=== PATIENT | female | born 1960 | race Caucasian/White ===

== ENCOUNTER 2019-03-16 19:18 | Emergency (ER) | payer MEDICARE, SELFPAY ==
[2019-03-16 19:19] VITALS: BP 169/100; PULSE 72; RESP 16; TEMP 36.4; O2SAT 96; BMI 32.3
--- NOTE | 2019-03-16 19:41 | CT_ITS ---
STUDY: CT ABDOMEN AND PELVIS WITHOUT CONTRAST REASON FOR EXAM: Female, 58 years old. Pain RADIATION DOSAGE (If Supplied By Facility): DLP = ( 1021.24 ) mGycm TECHNIQUE: Transaxial images were obtained from the dome of the diaphragm to the symphysis pubis without oral contrast, and without intravenous contrast. Sagittal and coronal images were reconstructed. Individualized dose optimization techniques were used for this CT. COMPARISON: None. FINDINGS: Evaluation of the abdominal viscera is limited in the absence of intravenous contrast. The visualized lung bases are clear. The visualized portions of the heart and pericardium are within normal limits. There are no calcified gallstones present. There is decreased hepatic attenuation. The liver is enlarged. No hepatic lesions are present. There is a right hepatic 2.5 cm cyst. The spleen is normal in size. There is a 1.3 cm splenic artery aneurysm. The pancreas demonstrates an unremarkable unenhanced appearance. The adrenal glands are within normal limits. There are no obstructing renal stones. There is no hydronephrosis. There is a left renal midpole 1.8 cm cyst. Normal visualized stomach. There is no bowel obstruction or inflammation. The aorta is normal in caliber. There is no abdominal or pelvic free air, free fluid, or fluid collection. Several mildly prominent mesenteric lymph nodes are present in the right lower quadrant. No pathologically enlarged lymph nodes are present. There are no destructive osseous lesions. CT/Abdomen/Pelvis without Cont IMPRESSION: No acute abdominal or pelvic pathology demonstrated on this noncontrast CT. Fatty liver and hepatomegaly. 1.3 cm splenic artery aneurysm. Several mildly prominent mesenteric lymph nodes in the right lower quadrant, possibly reactive. Electronically Signed: Ashish Munoz, at 20:34 EDT Tel , Service support ,
[2019-03-16] MEDS: 0.9% Normal Saline 1,000 ML 250 ML IV (19:47)
[2019-03-16] MEDS: Ondansetron 4 MG/2 ML Vial IV (19:47)
[2019-03-16] MEDS: Ketorolac 30 MG/ML Syringe IV (19:47)
[2019-03-16 19:49] LABS: Bacteria 0 SEEN /hpf (None Seen); Mucous, Urine 0 SEEN /hpf (<or=2+)
--- NOTE | 2019-03-16 19:53 | ED.DCSUM_ITS ---
- ER Visit Summary Date of Service: 03/16/19 Chief Complaint: Right flank pain History of Present Illness: The patient is a 58 F who presents with right flank pain that began approxi-1 to 2 hours prior to arrival. Patient states the pain began suddenly. Patient states the pain is constant burning but sharp at times. Patient states nothing makes it better or worse. Patient denies any prior history of similar pain. Patient denies any dysuria or hematuria. Patient denies any nausea or vomiting. Physical Examination: Vital signs are stable except for mildly elevated blood pressure 169/100. Patient is afebrile. Patient is in no acute distress. Oromucosa is pink and moist. Neck is supple. Trachea is midline. There is no JVD noted. Heart was regular rate and rhythm. Lungs are clear and equal bilaterally. Abdomen is soft. Bowel sounds are normal. There is some right CVA tenderness. There is no rebound or guarding noted. Cranial nerves II through XII are intact. There are no focal motor or sensory deficits noted. Test Results: CBC is within normal limits. Basic metabolic profile showed a creatinine of 1.05 and a BUN of 22. Urinalysis shows leukocyte esterase of 500 with 5-[address] scan of the abdomen and pelvis does not show any acute abnormality but there is some prominent mesenteric lymph nodes in the right lower quadrant that may be reactive. Emergency Department Course and Treatment: Patient was given IV fluids and Toradol here. Patient was given a prescription for Macrobid. Patient was instructed to follow-up with her primary care physician in 5 to 7 days. Patient understood and was agreeable with the plan. All questions were answered. Disposition: Discharge home Impression: 1. Urinary tract infection 2. Mesenteric adenitis This note was generated with [employer] dictation software. It may contain incorrect words, spelling, and punctuation that were not noted in review of the chart prior to signing ED Disposition - Plan for ED Patient: Disposition: Home or Assisted Living Diagnosis: Urinary tract infection, Mesenteric adenitis Instructions: Bladder Infection, Female (Adult) Prescriptions: Nitrofurantoin Macrocrystals [Macrobid] 100 mg PO Q12 #10 cap Prescription Printed Referrals: Arlet Chavis MD [Primary Care Provider] - 5-7 Days
[2019-03-16 19:58] LABS: Absolute Neutrophil Count 4.3 X10^3/uL (2.0-7.7); Basophil# 0.04 X10^3/uL; Basophil% 0.5 % (0-1); Eosinophil# 0.41 X10^3/uL; Eosinophils% 4.9 % (0-5); Hematocrit 42.2 % (37-47); Lymphocyte % 34.9 % (19-41); Mean Corp Hgb Conc 33.2 g/gl (32-36); Mean Corpuscular Hgb 28.5 pg (27.0-32.0); Mean Corpuscular Volume 85.8 fL (81-99); Mean Platelet Vol. 9.1 fl (6.2-12.0); Monocyte# 0.62 X10^3/uL; Monocyte% 7.5 % (0-10); Neutrophil # 4.29 X10^3/uL (2.7-7.7); Neutrophil % 51.7 % (47-70); Platelet Count 250 K/mm3 (150-450); RBC Distribution Width CV 12.8 % (11.6-14.6); RBC Distribution Width SD 39.4 fl (35.1-43.9); Red Blood Count 4.92 M/mm3 (4.2-5.4); White Blood Count 8.3 K/mm3 (4.4-11.0)
[2019-03-16 19:59] LABS: POSITIVE COUNT NO; POSITIVE DIFFERENTIAL NO; POSITIVE MORPHOLOGY NO
[2019-03-16 20:06] LABS: Color, Urine Yellow (Yellow); Glucose, Dipstick Normal (Normal); Ketone-Dipstick Negative (Negative); Leukocyte Esterase-Dipstick 500 /ul (Negative); Nitrite-Dipstick Negative (Negative); Occult Blood-Urine Negative /ul (Negative); Protein-Dipstick Negative (Negative); Urine Bilirubin Dipstick Negative (Negative); Urine Clarity Clear (Clear); Urine Urobilinogen Normal (Normal)
[2019-03-16 20:12] LABS: Anion Gap 6 (5-15); BUN 22 mg/dL (7-18); Chloride 109 mmol/L (98-107); Creatinine, Serum 1.05 mg/dL (0.55-1.02); EST Glomerular Filtration Rate 57 mL/min (>60); Est Glom Filt Rate - Afr Amer 69 mL/min (>60); Estimated Creatinine Clearance 55.41 ml/min; Glucose 105 mg/dL (74-106); Potassium 3.8 mmol/L (3.5-5.1); Sodium Level 141 mmol/L (136-145)
[2019-03-16 20:15] LABS: Squamous Epithelial Cells - UA 0-5 SEEN /hpf (5-10)
[2019-03-16 20:16] LABS: Hyaline Cast 0-5 SEEN /lpf (0-5)
[2019-03-16 20:17] LABS: White Blood Cells 5-10 SEEN /hpf (0-5)
[2019-03-16 20:19] LABS: Red Blood Cells-Urine 0-5 SEEN /hpf (0-5)
[2019-03-16 21:23] VITALS: BP 156/88; PULSE 68; RESP 98; O2SAT 17
--- NOTE | 2019-03-16 21:33 | NURSING ---
notified of pt c/o pain
[2019-03-16] MEDS: Nitrofurantoin Macrocrystals 100 MG Capsule PO (22:50)
[2019-03-16 22:53] VITALS: BP 124/75; PULSE 71; RESP 18; O2SAT 96
== END 2019-03-16 22:57 | disposition home or self-care (01) ==
PROVIDERS: Emergency Provider Emergency Medicine; Family Provider Internal Medicine; PCP Internal Medicine
DX: N39.0 Urinary tract infection, site not specified (principal); I88.0 Nonspecific mesenteric lymphadenitis; I10 Essential (primary) hypertension
CPT/HCPCS: 74176; 80048; 81001; 85025; 99284; J7030; A4216; J2405

== ENCOUNTER 2023-03-28 23:39 | Emergency (ER) | payer MEDICARE, SELFPAY ==
[2023-03-28 23:43] VITALS: BP 144/81; PULSE 66; RESP 20; TEMP 36.9; O2SAT 94; BMI 33.8
[2023-03-29] MEDS: Benzonatate 100 MG Capsule 200 MG PO (00:50)
[2023-03-29] MEDS: dexAMETHasone 10 MG/ML Vial PO.IVFORM (00:50)
--- NOTE | 2023-03-29 01:34 | EX.ED.DYSGE1 ---
HPI History of Present Illness Chief Complaint: Sore Throat Informant: patient Narrative Narrative: Patient is a 62-year-old female with past medical history of hyperlipidemia and hypertension who presents ER with concern over strep throat. She states her friend was over recently who had congestion cough and sore throat. She states in the last 2 days she has had nasal congestion with cough and sore throat and is afraid she has developed strep after being exposed to her friend who is also sick. She states she is having difficulty sleeping this evening based on her symptoms and therefore comes in for evaluation [facility] Home Medications lisinopril 20 mg tablet 20 mg PO DAILY 03/16/19 [History Last Taken Unknown] nitrofurantoin monohydrate/macrocrystals 100 mg capsule 100 mg PO Q12 #10 caps 03/16/19 [Rx Last Taken Unknown] atorvastatin 20 mg tablet 20 mg PO DAILY 03/28/23 [History Last Taken Unknown] metformin 500 mg tablet 500 mg PO BID 03/28/23 [History Last Taken Unknown] trazodone 50 mg tablet 50 mg PO QHS PRN PRN insomnia 03/28/23 [History Last Taken Unknown] azelastine 137 mcg (0.1 %) nasal spray aerosol 2 spray intranasal BID #30 mL 03/29/23 [Rx Last Taken Unknown] benzonatate 200 mg capsule 200 mg PO TID PRN cough #30 caps 03/29/23 [Rx Last Taken Unknown] prednisone 20 mg tablet 40 mg (2 x 20 mg) PO DAILY 5 days #10 tabs 03/29/23 [Rx Last Taken Unknown] Allergy/AdvReac Type Severity Reaction Status Date / Time morphine Allergy Hives Verified 03/28/23 23:40 Sulfa (Sulfonamide Allergy Hives Verified 03/28/23 23:40 Antibiotics) Social History Smoking Status: Never smoker [facility] ED Constitutional Constitutional ED: Denies chills or fever(s) ENT ENT ED: Reports rhinorrhea and sore throat Cardiovascular Cardiovascular: Denies chest pain Respiratory/Chest Respiratory/Chest: Reports cough; Denies dyspnea Gastrointestinal Gastrointestinal: Denies abdominal pain, diarrhea, nausea or vomiting Genitourinary Genitourinary ED: Denies dysuria Musculoskeletal Musculoskeletal: Reports myalgias Integumentary Denies rash Neurologic Neurologic: Denies headache(s) Hematologic/Lymphatic Hematologic/Lymphatic: Denies easy bleeding or easy bruising EXAM Physical Exam Const Vital Signs: 03/28/23 23:43 03/29/23 01:40 Temperature 98.4 F Temperature Source Temporal Pulse Rate 66 67 Respiratory Rate 20 H 18 Blood Pressure 144/81 H 136/70 H Blood Pressure Mean 102 Pulse Ox 94 95 Oxygen Delivery Method Room Air Positive well nourished and well developed General Appearance ED: well developed HEENT HEENT Narrative: Bilateral TMs are retracted but show no secondary changes to suggest infection. Nasal mucosa is hyperemic and boggy with enlarged inferior nasal turbinate There is cobblestoning the posterior pharynx consistent with sinus drainage without airway edema or compromise. No secondary changes to suggest infection. Eyes PERRL and EOMs intact bilaterally Neck supple Resp normal respiratory effort and clear to auscultation bilaterally Cardio regular rate and regular rhythm Extremity normal to inspection Neuro oriented x3 and CN's II-XII intact bilaterally Sensorium / Orientation: alert Psych mental status grossly normal Skin no rashes or lesions noted MDM MDM MDM Narrative Medical decision making narrative: Patient presented to the ER in no acute distress. She had concern for strep throat but constellation of symptoms are most consistent with an upper respiratory tract infection. Breath sounds revealed no abnormalities to suggest pneumonia and there were no obvious findings concerning for otitis media or otitis externa on physical exam. Therefore I felt no need to check a rapid strep swab at this time. Rapid strep was negative consistent with her physical exam indicating patient has a viral upper respiratory infection. Patient was started on symptomatic medication secondary to this but as she has no signs of respiratory distress or hypoxia she is otherwise safe for discharge. History & Record Review Discussion w/independent historian: Patient Discharge Plan Triage Chief Complaint: Sore Throat ED Provider: Trey Amos Dx/Rx/DC Orders Clinical Impression: Acute upper respiratory infection Instructions: ED URI, Viral, No Abx (Adult) Prescriptions: New azelastine 137 mcg (0.1 %) aerosol,spray 2 spray intranasal BID Qty: 30 0RF Rx Instructions: administer into each nostril prednisone 20 mg tablet 40 mg PO DAILY 5 Days Qty: 10 0RF benzonatate 200 mg capsule 200 mg PO TID PRN (Reason: cough) Qty: 30 0RF No Action lisinopril 20 MG tablet 20 mg PO DAILY Patient Comments: take 1 tablet by mouth once daily nitrofurantoin monohyd/m-cryst 100 MG capsule 100 mg PO Q12 Qty: 10 0RF Hold Instructions: Order Changed metformin 500 mg tablet 500 mg PO BID Patient Comments: take 1 tablet by mouth twice a day with meals atorvastatin 20 mg tablet 20 mg PO DAILY Patient Comments: take 1 tablet by mouth every evening trazodone 50 mg tablet 50 mg PO QHS PRN PRN (Reason: insomnia) Patient Comments: take 1 tablet by mouth every 24 hours if needed for sleep Primary Care Provider: ABENA BOOTH Referrals: ABENA BOOTH DO [Primary Care Provider] - Disposition Disposition: Home, Self Care Discharge Date/Time: 03/29/23 01:41
[2023-03-29 01:40] VITALS: BP 136/70; PULSE 67; RESP 18; O2SAT 95
== END 2023-03-29 01:41 | disposition home or self-care (01) ==
PROVIDERS: Emergency Provider Emergency Medicine; PCP Family Medicine; Visit Provider Emergency Medicine
DX: J06.9 Acute upper respiratory infection, unspecified (principal); E78.5 Hyperlipidemia, unspecified; I10 Essential (primary) hypertension; Z79.899 Other long term (current) drug therapy
CPT/HCPCS: 87880; 99283

== ENCOUNTER 2023-08-27 16:00 | Outpatient (RCR) | payer MEDICARE, SELFPAY ==
--- NOTE | 2023-07-23 15:24 | HP.PTEVAL_ITS ---
Patient's Visit Information Visit Information Visit Information: DAMIAN ROCHA is a 63 year old F referred to Physical Therapy by Dr. Genaro Blanchard MD with a diagnosis of Unsteadiness and upper back/neck pain. Date of Evaluation: 07/23/23 Physical Therapist: Harpreet Gant, DPT, OCS, CSCS Visit Plan Frequency: 2x /Week Duration: 2 Months Plan: 2x/week as needed for 1. Biodex balance assessment next session and check HEP of head nods and turns 10x, scap cirlces and cervical extension given today) then balance as needed, progression of vestibular exercises for habituation, neck ROM ,STM, MH and stretch/strengthen, L wrist strengthen. 2x/week for 4-8 weeks Subjective Subjective: My balance is off. I had a fall june 16 hitting face on pavement. Was going down stairs and fell FW. Face damaged, L wrist hurts. Fell due to uneven concrete. No other falls. Got concussion and symptoms are cloudiness, and dizzy spells continue. No real FERNANDEZ but sometimes some sharp pains in forehead. Neck pain at times to B/w shoulder blades sometimes into LB. Feels unsteady at times maybe near concrete steps. Dizzy is now and then daily, typically getting up from chair for few seconds. L wrist hurts with use 7/10 sharp short term or holding phone at base of thumb. Neck pain 3/10 intermittent central and R shoulder baldes. No real reason. 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 Sleep: OK with sleeping pills. Not employed. Spends day: taking care of grandson 9 month old. No regular ex except house and yard work. Has blower and grandchildren help. Pain neck: Pain Intensity (Out of 10): 0 Pain Intensity Range: 0 and 3 Objective Objective: Walks I into PT safely, no dizzyness until made to turn head or look up, then mild unsteady. Transfers I, steps with one rail reciprocal and I. Wrist AROM WFL but painful L side with extensiona dn thumb extension, strong but painful. elbow and shoulder AROM WFL B. scap AROM WFL but hurts on L UT. Neck AROM 60 rotation B, SB 20 but painful B L >R, extension to 25 degrees and slightly painful. - c/s compression test. - B hallpike komal - roll test Oculomotor : head turns and nods cause dizzyness. no nystagmus with gaze or head shake. purusit and saccades are normal, VOR is normal, no syptoms. - head thrust - skew eye deviation - ocular tilt. reflexes 2/3 bi and tri B Sensation UE WNL to gross light touch LE AROM WFL./ Steady on feet even with tandem walk, unsteady with head movements while walking only and slightly dizzy. Balance/Special Test Scores Functional Gait Assessment Score: 27 % Disability: 10.0000 Dizziness Score: 38 Goals Goal 1:: 30 FGA to limit fall risk Goal Time Frame: 6-8 Weeks Goal 2:: Pt feel wrist, neck pain and dizzyness abolished 90% Goal Time Frame: 6-8 Weeks Goal 3:: DHI score 10 or less Goal Time Frame: 6-8 Weeks Goal 4:: I appropriate hep to manage condition Goal Time Frame: 6-8 Weeks Rehabilitation Potential Physical Therapy Diagnosis: dizzyness leading to unsteady feeling and L wrist pain and neck pain disrupting comfort. Rehabilitation Potential: Good Anticipated Interventions Patient/Client Instruction: Educate patient on: Condition and Plan of Care For the Purpose of:: To decrease pain, To increase ROM, To improve nutrient delivery to tissue, To increase tolerance to activity/condition/position and To improve gait and locomotor functions Therapeutic Exercise to Include: Strength training, Balance training, Postural training, Flexibilty training, Passive ROM and Active ROM Comment: vestibular ex For the Purpose of:: To decrease pain, To increase ROM, To improve nutrient delivery to tissue, To improve muscle performance and motor function, To increase tolerance to activity/condition/position, To improve ability of physical actions for home/community/work/leisure and To improve gait and locomotor functions Manual Therapy Techniques to Include: Soft tissue mobilization For the Purpose of:: To decrease pain, To increase ROM and To improve nutrient delivery to tissue Thermo therapy (hot pack): Yes For the Purpose of:: To decrease pain, To increase ROM and To improve nutrient delivery to tissue Text: Thank you for the opportunity to evaluate your patient. For Medicare and Medicare HMO plans, please review the plan of care and approve it. It will need to be FAXED BACK to us at [phone] for Medicare purposes. For Medicare only, by signing this I certify the plan of care. Please let me know if there are questions or concerns regarding this plan of care. Physician Signature: Date:
--- NOTE | 2023-08-01 09:10 | HP.PTCOM_ITS ---
PT Communication Note 08/01/[address] Genaro Blanchard MD , Thank you for the referral of Robinson to [facility] for balance assessment. I have enclosed a copy of the results for your review. In summation, she score lower on posterior weight shifting ability and somatosensory balance on the CTSIB testing. I have explaned these results to her and its implcations on PT. At this point, I plan to see her 2x/week for 4-8 weeks to work on balance deficits and neck pain per the original plan of care. We will incorporate some wrist strength to tolerance but she tells me she is seeking further medical attention for her wrist pain. Please do not hesitate to contact me if there are questions regarding her PT. Thank you. Sincerely, Harpreet Gant DPT, OCS, CSCS Contact Information
--- NOTE | 2023-08-27 16:53 | HP.PTDCSUM ---
Discharge Summary D/C summary: It has been my pleasure to treat DAMIAN ROCHA referred by Dr. Genaro Blanchard MD, with the diagnosis of Unsteadiness and upper back/neck pain for a total of 8 visit(s). Discharge Date: 08/27/23 Please see the following information for a summary of their discharge status. Subjective Subjective: Getting better. Had muscle spasm Friday up into neck. Was up to 9/10 and lasted most of day. 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 Steadiness i s better on foam, not stumbling anyumore, not falling or dizzy. no consistent dizzyness. Doing HEP at home and will continue. No f.u with doctor. Will see neuro 10/13/23 Pain neck: Pain Intensity (Out of 10): 0 Overall Improvement % Improvement: 80 Objective Objective/Function: FGA is +2, walking well and no FERNANDEZ, neck ROM is 35 extension and symeetical rotation and SB ROM in neck but some pain with R rotation. UE AROM WFL. Dizzy complaints of DHI are only intermittent rare unsteady feelings, not her normal and not holding her back from any acitvity. Goals Goal 1:: FGA to limit fall risk Goal Progress: Goal Met Goal 2:: Pt feel wrist, neck pain and dizzyness abolished 90% Goal Progress: 80% Goal 3:: DHI score 10 or less Goal Progress: Not Progressing Goal 4:: I appropriate hep to manage condition Goal Progress: Goal Met Plan Plan: d/c to HEP D/C Information d/c sentence: If there are questions or concerns regarding this patient's physical therapy, please feel free to call me at [phone]. Thank you for the referral of this patient. Sincerely, Harpreet Gant, DPT, OCS, CSCS Balance/Gait/Functional tests Balance/Special Test Scores Functional Gait Assessment Score: 29 % Disability: 3.3400 Dizziness Score: 44 Improvement % Improvement: 80
== END 2023-08-27 19:00 | disposition home or self-care (01) ==
LOC: PT 16:00
PROVIDERS: PCP Family Medicine; Referring Provider Psychiatry & Neurology Neurology; Visit Provider Psychiatry & Neurology Neurology
DX: F07.81 Postconcussional syndrome (principal); R26.81 Unsteadiness on feet; M54.12 Radiculopathy, cervical region
CPT/HCPCS: 97110; 97140; 97161; 97164; 97750

== ENCOUNTER 2024-01-25 22:36 | Emergency (ER) | payer MEDICARE, SELFPAY ==
[2024-01-25 22:36] VITALS: BP 193/111; PULSE 59; RESP 28; TEMP 36.1
[2024-01-25 22:37] VITALS: BP 193/111; PULSE 59; RESP 22; TEMP 36.1; BMI 33.5
--- NOTE | 2024-01-25 23:09 | ED.VIS.BACK ---
HPI History of Present Illness Chief Complaint: Back Informant: patient Narrative Narrative: 63-year-old female with a history of chronic back issues for about 10 years states for the past 2 weeks has been having a flareup, it is in her right low-mid back, hurts more to move, she is having muscle spasms. No urinary symptoms. No nausea or vomiting. No radiation down her legs. No saddle anesthesia or bowel or bladder dysfunction. No recent injury. She states today it became especially worse while she was sitting in a car on the way to a restaurant. Prior similar symptoms: Yes and With Prior Back Pain [facility] Medical History (Updated 01/26/24 @ 01:[address] Partha Molina MD) HTN (hypertension) Hyperlipidemia Type 2 diabetes mellitus Home Medications lisinopril 20 mg tablet 40 mg PO DAILY 03/16/19 [History Last Taken Unknown] atorvastatin 20 mg tablet 20 mg PO DAILY 03/28/23 [History Last Taken Unknown] metformin 500 mg tablet 500 mg PO BID 03/28/23 [History Last Taken Unknown] trazodone 50 mg tablet 50 mg PO QHS PRN PRN insomnia 03/28/23 [History Last Taken Unknown] omega-3 600 qb-zwk-ria-other wpjnf-9x-ymnu oil 1,000 mg capsule 3 cap PO TID 01/25/24 [History Last Taken Unknown] orphenadrine citrate 100 mg tablet,extended release 100 mg PO Q12H #10 tabs 01/26/24 [Rx Last Taken Unknown] Allergy/AdvReac Type Severity Reaction Status Date / Time morphine Allergy Hives Verified 01/25/24 22:36 Sulfa (Sulfonamide Allergy Hives Verified 01/25/24 22:36 Antibiotics) acetaminophen [From Percocet] AdvReac Intermediate Vomiting Verified 01/25/24 23:55 oxycodone [From Percocet] AdvReac Intermediate Vomiting Verified 01/25/24 23:55 Social History Smoking Status: Former smoker ROS ROS ED Constitutional Constitutional ED: Denies chills or fever(s) Gastrointestinal Gastrointestinal: Denies abdominal pain, constipation, fecal incontinence, nausea or vomiting Genitourinary Genitourinary ED: Reports other Details: no urinary retention ; Denies abdominal discomfort, dysuria, hematuria, urinary frequency or urinary incontinence Musculoskeletal Musculoskeletal: Reports as per HPI and back pain; Denies neck pain Integumentary Denies rash or wounds Neurologic Neurologic: Denies headache(s), paresthesias or weakness Psychiatric Psychiatric: Reports anxiety EXAM Physical Exam Const Vital Signs: 01/25/24 22:37 01/25/24 22:36 Temperature 97.0 F L 97.0 F L Temperature Source Temporal Temporal Pulse Rate 59 L 59 L Respiratory Rate 22 H 28 H Blood Pressure 193/111 H 193/111 H Blood Pressure Mean 138 138 Positive well nourished and well developed Constitutional Narrative: in mild painful distress General Appearance ED: well developed HEENT Negative for trauma or tenderness Eyes PERRL and EOMs intact bilaterally Neck full ROM and supple GI normal to inspection, nondistended, normoactive bowel sounds, soft to palpation and non-tender Back/Spine normal to inspection Thoracic Spine / Upper Back: paraspinal muscle tenderness right (Along with muscle spasm. Normal inspection no rash.) Lumbar Spine / Lower Back: ROM limited and straight leg raise negative bilaterally; Negative for lumbar spinal tenderness Extremity normal to inspection, full ROM and no pedal edema Neuro oriented x3 and no sensory deficits noted Sensorium / Orientation: alert Motor Exam: strength 5/5 throughout and clonus absent Deep Tendon Reflexes: Rt Patellar (L4): 2+, Lt Patellar (L4): 2+, Rt Ankle (S1): 2+ and Lt Ankle (S1): 2+ Deep Tendon Reflexes Back: Rt Patellar (L4): 2+, Lt Patellar (L4): 2+, Rt Ankle (S1): 2+ and Lt Ankle (S1): 2+ Plantar Reflex: Downgoing: bilateral Psych thought process normal Psych Narrative: Anxious otherwise normal mental status Skin no rashes or lesions noted and no wounds MDM MDM MDM Narrative Medical decision making narrative: Patient is suggesting that her pain which seems musculoskeletal with spasm reacts to a steroid shot but not naproxen or oral prednisone. She is a diabetic. I advised her that an injection of Kenalog would likely cause her to have hyperglycemia that may be difficult to control since she is not on insulin, and it could last for a week or more. She agrees, a steroid shot is probably not the best treatment for her issue right now. She does not have any symptoms or findings of radiculopathy. She states that she has not tolerated muscle relaxers in the past, but I need a few including Norflex, which she has never had before and she is willing to try it. She is also given a dose of Ativan, Toradol, and an oxycodone and plan will be to reevaluate her. I reevaluation patient resting comfortably and doing much better. She believes this is musculoskeletal, I think so 2. She develops urinary symptoms I recommend returning for further workup but at this time I do not think this is likely renal colic. Supportive care advised she will follow-up with her family doctor. Discharge Plan Triage Chief Complaint: Back ED Provider: Partha Molina Dx/Rx/DC Orders Clinical Impression: Spasm of thoracic back muscle, Musculoskeletal back pain Instructions: ED Back Spasm, No Trauma, ED Back Sprain/Strain Prescriptions: New orphenadrine citrate 100 mg tablet extended release 100 mg PO Q12H Qty: 10 0RF No Action lisinopril 20 MG tablet 40 mg PO DAILY Patient Comments: take 1 tablet by mouth once daily metformin 500 mg tablet 500 mg PO BID Patient Comments: take 1 tablet by mouth twice a day with meals atorvastatin 20 mg tablet 20 mg PO DAILY Patient Comments: take 1 tablet by mouth every evening trazodone 50 mg tablet 50 mg PO QHS PRN PRN (Reason: insomnia) Patient Comments: take 1 tablet by mouth every 24 hours if needed for sleep gihbn-[id number]-epa-fish oil 600-1,000 mg capsule 3 cap PO TID Primary Care Provider: ABENA BOOTH Referrals: ABENA BOOTH, [Primary Care Provider] - 1 Week if not improving Disposition Disposition: Home, Self Care
[2024-01-25] MEDS: Ketorolac 15 MG/ML Vial IM (23:45)
[2024-01-25] MEDS: Orphenadrine 60 MG/2 ML Ampul IM (23:47)
[2024-01-25] MEDS: LORazepam 2 MG/ML Syringe 0.5 MG IM (23:48)
== END 2024-01-26 01:16 | disposition home or self-care (01) ==
PROVIDERS: Emergency Provider Emergency Medicine; PCP Family Medicine; Visit Provider Emergency Medicine
DX: M62.830 Muscle spasm of back (principal); E11.9 Type 2 diabetes mellitus without complications; Z87.891 Personal history of nicotine dependence; M54.9 Dorsalgia, unspecified; I10 Essential (primary) hypertension; E78.5 Hyperlipidemia, unspecified
CPT/HCPCS: 96372; 99282

== ENCOUNTER 2024-08-23 21:06 | Emergency (ER) | payer MEDICARE, SELFPAY ==
[2024-08-23 21:07] VITALS: BP 174/96; PULSE 65; RESP 18; TEMP 36.4; O2SAT 97; BMI 31.8
--- NOTE | 2024-08-23 23:52 | EX.ED.UPPERE ---
HPI History of Present Illness HPI Narrative: 64-year-old female complaining of back spasms. She has had these for years. They come and go. She denies any fall injury or trauma. No chest pain or shortness of breath. No other complaints. Chief Complaint: Upper Extremity Injury Informant: patient Occured/Mechanism Mechanism/Context: No injury and No blunt trauma Onset/Context/Timing Onset: Today and Hours Context: Gradual Onset Timing: Continuous Quality of Pain: Dull Current Severity: Mild Maximum Severity: Moderate Associated Symptoms Associated Symptoms: Negative for Parasthesia, Weakness or Loss of Funtion Narrative Narrative: 64-year-old female history of hypertension, diabetes high cholesterol. She has had back muscle spasms. History of the same. She has had this for years. They come and go. They started tonight around 7 PM. Denies any fall injury or trauma. No other complaints. Prior similar symptoms: Yes Recent Illness/Hospitalization: No PFSH PFSH Medical History Hyperlipidemia HTN (hypertension) Type 2 diabetes mellitus Home Medications ?Medication ?Instructions ?Recorded ?Last Taken ?Type lisinopril 20 mg tablet 40 mg PO DAILY 03/16/19 Unknown History atorvastatin 20 mg tablet 20 mg PO DAILY 03/28/23 Unknown History metformin 500 mg tablet 500 mg PO BID 03/28/23 Unknown History trazodone 50 mg tablet 50 mg PO QHS PRN PRN insomnia 03/28/23 Unknown History omega-3 600 cd-mxy-exv-other 3 cap PO TID 01/25/24 Unknown History nbvsl-9o-laht oil 1,000 mg capsule gabapentin 100 mg capsule 100 mg PO TID 08/23/24 Unknown History metaxalone 800 mg tablet 800 mg PO TID Back spasms 7 days 08/23/24 Unknown Rx #21 tabs metoprolol succinate 25 mg 25 mg PO DAILY 08/23/24 Unknown History tablet,extended release 24 hr Allergy/AdvReac Type Severity Reaction Status Date / Time morphine Allergy Hives Verified 08/23/24 21:07 Sulfa (Sulfonamide Allergy Hives Verified 08/23/24 21:07 Antibiotics) acetaminophen (From Percocet) AdvReac Intermediate Vomiting Verified 08/23/24 21:07 oxycodone (From Percocet) AdvReac Intermediate Vomiting Verified 08/23/24 21:07 Social History Smoking Status: Former smoker ROS ROS ED ROS Narrative Denies recent illness. Constitutional Constitutional ED: Denies chills or fever(s) Eyes Eyes: Denies blurry vision ENT ENT ED: Denies ear pain Cardiovascular Cardiovascular: Denies chest pain Respiratory/Chest Respiratory/Chest: Denies cough Gastrointestinal Gastrointestinal: Denies abdominal pain Genitourinary Genitourinary ED: Denies dysuria or hematuria Musculoskeletal Musculoskeletal: Reports back pain; Denies neck pain Integumentary Denies abscess or Abrasions Neurologic Neurologic: Denies headache(s) Psychiatric Psychiatric: Denies anxiety Endocrine Endocrinology: Denies cold intolerance Hematologic/Lymphatic Hematologic/Lymphatic: Denies easy bleeding Allergic/Immunologic Allergic/Immunologic ED: Denies mouth swelling EXAM Physical Exam Narrative Exam Narrative: Well-appearing 64 -year-old female no acute distress. Vital signs are stable afebrile. H EENT exam unremarkable. Neck nontender. No lymphadenopathy. Lungs clear to auscultation bilaterally. Heart regular rate and rhythm rate about 65 no murmur. Chest wall ribs nontender. Abdomen soft nontender. Right mid back posterior thoracic area along the posterior ribs she has muscle spasm. No redness or warmth. No discoloration or bruising. No signs of trauma. No bony deformity or crepitance. Left side of her back nontender. Moving all 4 extremities. Neurovascularly intact. Normal strength. No edema. Normal range of motion. Neurologically she is awake alert no focal motor deficits. Const Vital Signs: 08/23/24 21:07 Temperature 97.6 F L Temperature Source Temporal Pulse Rate 65 Respiratory Rate 18 Blood Pressure 174/96 H Blood Pressure Mean 122 Pulse Ox 97 Oxygen Delivery Method Room Air Positive well nourished and well developed; Negative for cachectic, contractures or unkempt General Appearance ED: well developed and NAD; Negative for unkempt, cachectic, contractures, cyanotic or diaphoretic Nutritional Appearance: Negative for cachectic HEENT Reports moist mucous membranes normocephalic and atraumatic Eyes PERRL and EOMs intact bilaterally Neck full ROM and supple General: Negative for tenderness Lymph Lymphatic: Negative for other Chest Wall inspection of chest normal and palpation of chest normal Resp normal respiratory effort and clear to auscultation bilaterally Cardio regular rate, regular rhythm, S1 normal heart sound, S2 normal heart sound and no murmurs GI non-tender, non-distended and no masses Inspection: Negative for abdominal distention Palpation: soft; Negative for tender, guarding or rebound tenderness present Back/Spine no CVA tenderness Back/Spine Narrative: Right mid upper back reproducible tenderness consistent with muscle spasm. Normal appearance. General Back: Negative for CVA tenderness Cervical Spine: Negative for cervical spine tenderness Thoracic Spine / Upper Back: thoracic spinal tenderness Lumbar Spine / Lower Back: lumbar spinal tenderness Extremity normal to inspection and full ROM General Extremety ED: Negative for edema General Extremity: Negative for edema Neuro oriented x3, CN's II-XII intact bilaterally, moves all extremities and no focal motor deficits Sensorium / Orientation: alert, oriented to person, oriented to place and oriented to time; Negative for orientation impaired Motor Exam: strength 5/5 throughout Psych mental status grossly normal Appearance: Negative for unkempt Attitude: No agitated Mood & Affect: Negative for depressed, anxious or tearful Skin Lesions: no lesions Rashes: no rashes Trauma: no lacerations or abrasions MDM MDM MDM Narrative Medical decision making narrative: 64-year-old female history of muscle spasms exam and history consistent with muscle spasms. Treated with 1 p.o. Skelaxin and a prescription for Skelaxin for the next week. Follow-up if not improving. History & Record Review Discussion w/independent historian: Patient Additional record(s) reviewed:: Prior inpatient record, Prior outpatient record, Prior ED visit and Prior labs Discharge Plan Triage Chief Complaint: Upper Extremity Injury ED Provider: Triston Bonilla Dx/Rx/DC Orders Clinical Impression: Back muscle spasm, History of hypertension, History of diabetes mellitus Instructions: ED Back Spasm, No Trauma Prescriptions: New metaxalone 800 mg tablet 800 mg PO TID 7 Days Qty: 21 0RF No Action lisinopril 20 MG tablet 40 mg PO DAILY Patient Comments: take 1 tablet by mouth once daily metformin 500 mg tablet 500 mg PO BID Patient Comments: take 1 tablet by mouth twice a day with meals atorvastatin 20 mg tablet 20 mg PO DAILY Patient Comments: take 1 tablet by mouth every evening trazodone 50 mg tablet 50 mg PO QHS PRN PRN (Reason: insomnia) Patient Comments: take 1 tablet by mouth every 24 hours if needed for sleep gabapentin 100 mg capsule 100 mg PO TID metoprolol succinate 25 mg tablet extended release 24 hr 25 mg PO DAILY jbyan-4f-vlj-epa-fish oil 600-1,000 mg capsule 3 cap PO TID Primary Care Provider: ABENA BOOTH Referrals: ABENA BOOTH, [Primary Care Provider] - 3-5 Days if not improving Activity Restrictions/Additional Instructions: Hot shower and warm bath to relax the muscles. Motrin and Tylenol for pain and inflammation. Massage. The muscle relaxant Skelaxin 800 mg 3 times a day for 1 week. He will take 3 days and should start feeling better. Follow-up with your doctor if not improving. Return if feeling a lot worse. Print Language: Cook Islander Disposition Disposition: Home, Self Care
[2024-08-23] MEDS: Metaxalone 800 MG Tablet PO (23:59)
== END 2024-08-24 00:02 | disposition home or self-care (01) ==
LOC: ED 23:59
PROVIDERS: Emergency Provider Emergency Medicine; PCP Family Medicine; Visit Provider Emergency Medicine
DX: M62.830 Muscle spasm of back (principal); E11.9 Type 2 diabetes mellitus without complications; E78.5 Hyperlipidemia, unspecified; I10 Essential (primary) hypertension; Z87.891 Personal history of nicotine dependence
CPT/HCPCS: 99282

== ENCOUNTER 2024-11-17 20:57 | Emergency (ER) | payer MEDICARE, MEDICAID, SELFPAY ==
[2024-11-17 21:00] VITALS: BP 177/88; PULSE 60; RESP 16; TEMP 36.8; O2SAT 93; BMI 31.4
[2024-11-17 21:57] LABS: Bacteria 0 SEEN /hpf (None Seen); Mucous, Urine 0 SEEN /hpf (<or=2+); Squamous Epithelial Cells - UA 0 SEEN /hpf (5-10)
[2024-11-17] MEDS: Ondansetron 4 MG/2 ML Vial IV (21:59)
[2024-11-17] MEDS: 0.9% Normal Saline (500mL Bag) 500 ML 1000 ML IV (22:02)
--- NOTE | 2024-11-17 22:02 | EX.ED.DYSGE1 ---
HPI History of Present Illness Chief Complaint: Hypertension Informant: patient Narrative Narrative: Presents by EMS from home due to blood pressure of 200/83. Patient checked this around 7 PM due to feeling pressure on her nose and having headache. Today she has noted headaches and chills nonproductive cough. She had vomiting on arrival. No chest or abdominal pain. No urinary symptoms. No fevers. Denies sick contacts. She is on lisinopril 40 mg and metoprolol 25 mg daily. She has been taking her medications. Due to her elevated blood pressure she took an extra dose of each medicine around 7 PM. She is monitoring her blood pressure decided call EMS. EMS blood pressure stuck 160s over 107. She states stable blood pressures 130s in her doctor's office. [facility] Medical History Hyperlipidemia HTN (hypertension) Type 2 diabetes mellitus Home Medications ?Medication ?Instructions ?Recorded ?Last Taken ?Type lisinopril 20 mg tablet 40 mg PO DAILY 03/16/19 Unknown History atorvastatin 20 mg tablet 20 mg PO DAILY 03/28/23 Unknown History metformin 500 mg tablet 500 mg PO BID 03/28/23 Unknown History trazodone 50 mg tablet 50 mg PO QHS PRN PRN insomnia 03/28/23 Unknown History omega-3 600 fo-gqa-spi-other 3 cap PO TID 01/25/24 Unknown History hfeet-9r-bwha oil 1,000 mg capsule gabapentin 100 mg capsule 100 mg PO TID 08/23/24 Unknown History metaxalone 800 mg tablet 800 mg PO TID Back spasms 7 days 08/23/24 Unknown Rx #21 tabs metoprolol succinate 25 mg 25 mg PO DAILY 08/23/24 Unknown History tablet,extended release 24 hr Allergy/AdvReac Type Severity Reaction Status Date / Time morphine Allergy Hives Verified 08/23/24 21:07 Sulfa (Sulfonamide Allergy Hives Verified 08/23/24 21:07 Antibiotics) acetaminophen (From Percocet) AdvReac Intermediate Vomiting Verified 08/23/24 21:07 oxycodone (From Percocet) AdvReac Intermediate Vomiting Verified 08/23/24 21:07 Social History Smoking Status: Former smoker ROS ROS ED Constitutional Constitutional ED: Reports chills; Denies fever(s) or sweats ENT ENT ED: Denies sore throat Cardiovascular Cardiovascular: Denies chest pain, leg edema, palpitations or racing heartbeat Respiratory/Chest Respiratory/Chest: Reports cough; Denies dyspnea or dyspnea on exertion Gastrointestinal Gastrointestinal: Reports nausea and vomiting; Denies abdominal pain or diarrhea Genitourinary Genitourinary ED: Denies dysuria, hematuria or urinary frequency Musculoskeletal Musculoskeletal: Denies back pain, extremity pain or neck pain Integumentary Denies rash or wounds Neurologic Neurologic: Reports headache(s); Denies paresthesias or weakness EXAM Physical Exam Const Vital Signs: 11/17/24 21:00 11/17/24 21:14 11/17/24 23:00 Temperature 98.2 F Temperature Source Oral Pulse Rate 60 58 L Respiratory Rate 16 14 Respiratory Effort Normal Respiratory Pattern Normal Blood Pressure 177/88 H 154/76 H Blood Pressure Mean 117 102 Pulse Ox 93 98 Oxygen Delivery Method Room Air Room Air Positive well nourished and well developed General Appearance ED: well developed and NAD HEENT Reports moist mucous membranes normocephalic and atraumatic Eyes General Eye ED: Yes normal appearance of both eyes Neck full ROM Neck Narrative: No meningismus Chest Wall inspection of chest normal and palpation of chest normal Chest: Negative for tenderness Resp normal respiratory effort and normal air movement Effort and Inspection: symmetric chest movement; Negative for respiratory distress Cardio regular rate, regular rhythm and no murmurs Peripheral Pulses: pulses 2+ throughout GI normal to inspection, nondistended, normoactive bowel sounds and non-tender Palpation: Negative for guarding or rebound tenderness present Extremity normal to inspection General Extremety ED: Negative for edema or tenderness General Extremity: Negative for edema Neuro oriented x3, CN's II-XII intact bilaterally and no sensory deficits noted Sensorium / Orientation: awake and alert Skin no rashes or lesions noted and no wounds MDM MDM MDM Narrative Medical decision making narrative: Interventions / MDM: Differential diagnosis: Viral syndrome, elevated blood pressure with history of hypertension, headache Diagnosis considered but do not suspect: Pneumonia however chest x-ray negative. Intracranial hemorrhage however CT negative. Hypertensive emergency, negative workup. My EKG interpretation: Sinus rate of 56, no ST changes. Imaging independently reviewed and interpreted by myself: 2 view chest x-ray: No acute process. CT brain: No acute process. External documents reviewed: N/A Test considered but not ordered:N/A ED course: Patient elevated blood pressure with headaches. Will obtain CT brain and check labs. EKG sinus bradycardia. She is on metoprolol took extra dose. Denies lightheaded symptoms. Reports chills and cough. Will obtain chest x-ray and viral swabs. 2238: Labs normal urine notable for leukocytes negative nitrites white cells. Will send urine culture. She is asymptomatic. Creatinine 0.89. Normal electrolytes. Hemoglobin 14.5. White count 8.6. Chest x-ray negative. CT brain negative. Awaiting final read. 2319: Final reads are negative blood pressure down to 150/76. Headache improved. Discussed viral syndrome with the patient. She has vapor rubs at home. Discussed monitor blood pressure and symptoms. Follow-up with her doctor. All questions were answered. Re-evaluation: stable Disposition discussed with patient/family/significant other: Patient Case discussed with consulting clinician: N/A This note was generated with [employer] dictation software. It may contain incorrect words, spelling, and punctuation that were not noted in checking the note before signing. Lab Data Attestation: I reviewed the patient's lab results. Labs: Laboratory Results - last 24 hr 11/17/24 11/17/24 20:49 21:50 WBC 8.6 RBC 5.10 Hgb 14.5 Hct 43.0 MCV 84.3 MCH 28.4 MCHC 33.7 RDW Std Deviation 37.3 RDW Coeff of Ling 12.4 Plt Count 252 MPV 9.2 Immature Gran % (Auto) 0.600 Neut % (Auto) 60.2 Lymph % (Auto) 30.1 [place] % (Auto) 5.6 Eos % (Auto) 3.0 Baso % (Auto) 0.5 Absolute Neuts (auto) 5.2 Absolute Lymphs (auto) 2.58 Nucleated RBC % 0 Sodium 141 Potassium 3.7 Chloride 106 Carbon Dioxide 21.5 Anion Gap 13 BUN 13 Creatinine 0.89 Estim Creat Clear Calc 74.46 Est GFR (MDRD) Non-Af 71 BUN/Creatinine Ratio 14.1 Glucose 111 H Calcium 10.4 Urine Color Yellow Urine Clarity Sl. Cloudy Urine pH 7.0 Ur Specific [place] 1.010 Urine Protein Negative Urine Glucose (UA) Normal Urine Ketones Negative Urine Occult Blood Negative Urine Nitrite Negative Urine Bilirubin Negative Urine Urobilinogen Normal Ur Leukocyte Esterase 500 H Urine RBC 0 SEEN Urine WBC 0-5 SEEN Ur Squamous Epith Cells 0 SEEN Urine Bacteria 0 SEEN Urine Mucus 0 SEEN Radiography Diagnostic Testing: Clinical Impression(s) from Imaging Studies Brain CT 11/17/24 22:05 IMPRESSION: NO ACUTE FINDINGS One or more dose reduction techniques were used (e.g., Automated exposure control, adjustment of the mA and/or kV according to patient size, use of iterative reconstruction technique). Reading Location: [facility] Chest X-Ray 11/17/24 22:10 IMPRESSION: NEGATIVE CHEST Reading Location: [facility] Discharge Plan Triage Chief Complaint: Hypertension ED Provider: Jesus Garvey Dx/Rx/DC Orders Clinical Impression: Viral syndrome, Headache, Elevated blood pressure reading with diagnosis of hypertension Instructions: ED Hypertension, Established, ED URI, Viral, No Abx (Adult) Prescriptions: No Action lisinopril 20 MG tablet 40 mg PO DAILY Patient Comments: take 1 tablet by mouth once daily metformin 500 mg tablet 500 mg PO BID Patient Comments: take 1 tablet by mouth twice a day with meals atorvastatin 20 mg tablet 20 mg PO DAILY Patient Comments: take 1 tablet by mouth every evening trazodone 50 mg tablet 50 mg PO QHS PRN PRN (Reason: insomnia) Patient Comments: take 1 tablet by mouth every 24 hours if needed for sleep gabapentin 100 mg capsule 100 mg PO TID metoprolol succinate 25 mg tablet extended release 24 hr 25 mg PO DAILY metaxalone 800 mg tablet 800 mg PO TID 7 Days Qty: 21 0RF bwvon-9r-ium-epa-fish oil 600-1,000 mg capsule 3 cap PO TID Primary Care Provider: ABENA BOOTH Referrals: ABENA BOOTH DO [Primary Care Provider] - 1 Week Activity Restrictions/Additional Instructions: Your head CT negative. Chest x-ray negative. Labs are stable. COVID, flu, RSV negative. Blood pressure down to 150/76. Monitor symptoms. Follow-up with your doctor. Print Language: Turkmen Disposition Disposition: Home, Self Care
[2024-11-17 22:05] LABS: Absolute Lymphocyte Count 2.58 X10^3/uL (0.83-4.51); Absolute Neutrophil Count 5.2 X10^3/uL (2.0-7.7); Basophil# 0.04 X10^3/uL; Basophil% 0.5 % (0-1); Eosinophil# 0.26 X10^3/uL; Hemoglobin 14.5 g/dL (12.0-15.0); Lymphocyte # 2.58 X10^3/ul (0.83-4.51); Lymphocyte % 30.1 % (19-41); Mean Corp Hgb Conc 33.7 g/dL (32-36); Mean Corpuscular Hgb 28.4 pg (27.0-32.0); Mean Corpuscular Volume 84.3 fL (81-99); Mean Platelet Vol. 9.2 fl (6.2-12.0); Monocyte# 0.48 X10^3/uL; Monocyte% 5.6 % (0-10); NRBC Flagged by Analyzer 0 % (0-5); Neutrophil # 5.17 X10^3/uL (2.7-7.7); Neutrophil % 60.2 % (47-70); Platelet Count 252 K/mm3 (150-450); RBC Distribution Width CV 12.4 % (11.6-14.6); RBC Distribution Width SD 37.3 fl (35.1-43.9); White Blood Count 8.6 K/mm3 (4.4-11.0)
--- NOTE | 2024-11-17 22:05 | CT_ITS ---
PROCEDURE: BRAIN/HEAD WITHOUT CONTRAST TECHNIQUE: Head CT without intravenous contrast. COMPARISON: None. FINDINGS: There is no acute intracranial hemorrhage, mass effect, or evidence of large acute infarct. Brain: Normal CSF Spaces: Normal Sinuses/Mastoids: Mild mucosal thickening at the paranasal sinuses Bones: Unremarkable CT/Brain/Head without Contrast IMPRESSION: NO ACUTE FINDINGS One or more dose reduction techniques were used (e.g., Automated exposure contr ol, adjustment of the mA and/or kV according to patient size, use of iterative reconstruction technique). [facility]
[2024-11-17 22:08] LABS: Color, Urine Yellow (Yellow); Glucose, Dipstick Normal (Normal); Ketone-Dipstick Negative (Negative); Leukocyte Esterase-Dipstick 500 /ul (Negative); Nitrite-Dipstick Negative (Negative); Occult Blood-Urine Negative /ul (Negative); Protein-Dipstick Negative (Negative); Urine Bilirubin Dipstick Negative (Negative); Urine Clarity Sl. Cloudy (Clear); Urine Urobilinogen Normal (Normal)
--- NOTE | 2024-11-17 22:10 | RAD_ITS ---
PROCEDURE: CHEST PA AND LATERAL REASON FOR EXAM: Cough TECHNIQUE: Frontal and lateral views of the chest. COMPARISON: None. FINDINGS: The heart size is normal. The mediastinal contour is unremarkable. The lungs are clear. Degenerative changes are identified within the thoracic spine. RAD/Chest PA and Lateral IMPRESSION: NEGATIVE CHEST Reading Location: [facility]
[2024-11-17 22:24] LABS: Red Blood Cells-Urine 0 SEEN /hpf (0-5); White Blood Cells 0-5 SEEN /hpf (0-5)
[2024-11-17 22:36] LABS: Anion Gap 13 (5-15); BUN 13 mg/dL (4-19); BUN/Creat Ratio 14.1 RATIO (10-20); Calcium,Total 10.4 mg/dL (7.6-11.0); Carbon Dioxide 21.5 mmol/L (21.0-32.0); Chloride 106 mmol/L (98-108); Creatinine, Serum 0.89 mg/dL (0.70-1.20); EST Glomerular Filtration Rate 71 (>60); Estimated Creatinine Clearance 74.46 ml/min (50-250); Glucose 111 mg/dL (70-99); Potassium 3.7 mmol/L (3.3-5.1); Sodium Level 141 mmol/L (133-145)
--- NOTE | 2024-11-17 22:40 | ED.RN ---
no old ekg
[2024-11-17 23:00] VITALS: BP 154/76; PULSE 58; RESP 14; O2SAT 98
[2024-11-17 23:34] VITALS: BP 169/91; PULSE 57; RESP 18; TEMP 36.6; O2SAT 98
== END 2024-11-17 23:34 | disposition home or self-care (01) ==
PROVIDERS: Emergency Provider Emergency Medicine; PCP Family Medicine; Referring Provider Emergency Medicine; Visit Provider Emergency Medicine
DX: B34.9 Viral infection, unspecified (principal); E11.9 Type 2 diabetes mellitus without complications; E78.5 Hyperlipidemia, unspecified; R00.1 Bradycardia, unspecified; Z87.891 Personal history of nicotine dependence; R51.9 Headache, unspecified; R03.0 Elevated blood-pressure reading, without diagnosis of hypertension; R05.9 Cough, unspecified; R11.2 Nausea with vomiting, unspecified; Z79.899 Other long term (current) drug therapy
CPT/HCPCS: 70450; 71046; 80048; 81001; 85025; 87086; 87088; 87631; 93005; 96361; 96374; 99285; J2405

== ENCOUNTER 2025-09-12 08:46 | Emergency (ER) | payer MEDICARE, MEDICAID, SELFPAY ==
[2025-09-12 08:46] VITALS: BP 167/88; PULSE 87; RESP 16; TEMP 36.9; O2SAT 98; BMI 29.8
[2025-09-12 09:17] VITALS: BP 156/91; PULSE 73; RESP 18; TEMP 36.9; O2SAT 93
--- NOTE | 2025-09-12 09:20 | EX.ED.DYSGE1 ---
HPI History of Present Illness Chief Complaint: Other, Pain/Inj Narrative Narrative: 65-year-old female presents emergency department for complaint of bilateral neck pain. Patient states yesterday through the day she was eating breakfast and gradually got worse states that she is having spasming and pain on the right side of her neck now on the left side and hurts all over. Is able to flex and extend neck without difficulty but has pain with some range of motion with rotation. Denies any weakness, numbness or sensory deficits to arms. Denies any trauma, injury, vision changes, trouble swallowing or fevers. [facility] Medical History (Updated 09/12/25 @ 09:18 by Corazon Bowman) Non-smoker Diabetes Hyperlipidemia HTN (hypertension) Type 2 diabetes mellitus Home Medications ?Medication ?Instructions ?Recorded ?Last Taken ?Type lisinopril 20 mg tablet 40 mg PO DAILY 03/16/19 Unknown History atorvastatin 20 mg tablet 20 mg PO DAILY 03/28/23 Unknown History metformin 500 mg tablet 500 mg PO BID 03/28/23 Unknown History trazodone 50 mg tablet 50 mg PO QHS PRN PRN insomnia 03/28/23 Unknown History omega-3 600 dm-rbe-dqw-other 3 cap PO TID 01/25/24 Unknown History biyud-6q-lugk oil 1,000 mg capsule gabapentin 100 mg capsule 100 mg PO TID 08/23/24 Unknown History metaxalone 800 mg tablet 800 mg PO TID Back spasms 7 days 08/23/24 Unknown Rx #21 tabs metoprolol succinate 25 mg 25 mg PO DAILY 08/23/24 Unknown History tablet,extended release 24 hr ibuprofen 800 mg tablet 800 mg PO Q8H PRN pain #14 tabs 09/12/25 Unknown Rx lidocaine 5 % topical patch 2 patch topical DAILY #15 ea 09/12/25 Unknown Rx tizanidine 4 mg tablet 4 mg PO Q8H PRN muscle spasticity 09/12/25 Unknown Rx #20 tabs Allergy/AdvReac Type Severity Reaction Status Date / Time morphine Allergy Hives Verified 09/12/25 08:50 Sulfa (Sulfonamide Allergy Hives Verified 09/12/25 08:50 Antibiotics) acetaminophen (From Percocet) AdvReac Intermediate Vomiting Verified 09/12/25 08:50 oxycodone (From Percocet) AdvReac Intermediate Vomiting Verified 09/12/25 08:50 Social History Smoking Status: Former smoker EXAM Physical Exam Const Vital Signs: 09/12/25 08:46 09/12/25 09:17 Temperature 98.4 F 98.4 F Temperature Source Oral Pulse Rate 87 73 Respiratory Rate 16 18 Blood Pressure 167/88 H 156/91 H Blood Pressure Mean 114 112 Pulse Ox 98 93 Oxygen Delivery Method Room Air HEENT Reports moist mucous membranes Negative for tenderness Eyes PERRL and EOMs intact bilaterally Neck no lymphadenopathy and supple General: tenderness and other Tenderness over bilateral paravertebral cervical muscle over trapezius. No midline bony tenderness, step-offs or deformities. Full range of motion with extension and flexion. Negative Brudzinski sign. Limited range of motion secondary to pain with rotation Resp normal respiratory effort and clear to auscultation bilaterally Cardio regular rate GI non-tender Back/Spine Cervical Spine: Negative for cervical spine tenderness Thoracic Spine / Upper Back: Negative for thoracic spinal tenderness Lumbar Spine / Lower Back: Negative for lumbar spinal tenderness Neuro Sensory Exam: No sensory level loss detected Motor Exam: strength 5/5 throughout MDM MDM MDM Narrative Medical decision making narrative: 65-year-old female presents emergency department for complaint of bilateral neck pain. Patient states yesterday through the day she was eating breakfast and gradually got worse states that she is having spasming and pain on the right side of her neck now on the left side and hurts all over. Is able to flex and extend neck without difficulty but has pain with some range of motion with rotation. Denies any weakness, numbness or sensory deficits to arms. Denies any trauma, injury, vision changes, trouble swallowing or fevers., Physical exam patient having tenderness over bilateral cervical paravertebral musculature. 5 out of 5 upper extremity strength bilaterally with no focal neurological deficits or sensory deficits. 2+ radial pulses bilaterally. No cervical lymphadenopathy with full range of motion of flexion and extension with pain to the rotation of her cervical spine secondary to pain. Do not feel that imaging needed at this time as no red flag radiculopathy symptoms. Suspect cervical strain versus spasm. Patient requesting refill of tizanidine which I will give and supplement with lidocaine patches and Toradol outpatient. Vital stable and agreeable for discharge with return precautions given. Discharge Plan Triage Chief Complaint: Other, Pain/Inj ED Provider: Yris Blank Dx/Rx/DC Orders Clinical Impression: Cervical strain Prescriptions: New tizanidine 4 mg tablet 4 mg PO Q8H PRN (Reason: muscle spasticity) Qty: 20 0RF ibuprofen 800 mg tablet 800 mg PO Q8H PRN (Reason: pain) Qty: 14 0RF lidocaine 5 % adhesive patch,medicated 2 patch topical DAILY Qty: 15 0RF Rx Instructions: leave on most painful area for up to 12 hrs No Action lisinopril 20 MG tablet 40 mg PO DAILY Patient Comments: take 1 tablet by mouth once daily metformin 500 mg tablet 500 mg PO BID Patient Comments: take 1 tablet by mouth twice a day with meals atorvastatin 20 mg tablet 20 mg PO DAILY Patient Comments: take 1 tablet by mouth every evening trazodone 50 mg tablet 50 mg PO QHS PRN PRN (Reason: insomnia) Patient Comments: take 1 tablet by mouth every 24 hours if needed for sleep gabapentin 100 mg capsule 100 mg PO TID metoprolol succinate 25 mg tablet extended release 24 hr 25 mg PO DAILY metaxalone 800 mg tablet 800 mg PO TID 7 Days Qty: 21 0RF nmfjv-0i-via-epa-fish oil 600-1,000 mg capsule 3 cap PO TID Primary Care Provider: ABENA BOOTH Referrals: ABENA BOOTH DO [Primary Care Provider, Medical] Activity Restrictions/Additional Instructions: Please follow-up with your primary care provider within the next week regarding your visit today. You may supplement your muscle relaxer, tizanidine, with heat and 100 mg ibuprofen and 1000 mg Tylenol every 6 hours. You are also given a lidocaine patch to use on either side of your neck at 12 hours at a time. Return if you develop any worsening symptoms, numbness, weakness of your arms. Print Language: Tajik Disposition Disposition: Home, Self Care Discharge Date/Time: 09/12/25 10:08
[2025-09-12] MEDS: Lidocaine 5% Patch 2 PATCH TOPICAL (09:23)
[2025-09-12] MEDS: Ketorolac 30 MG/ML Syringe IM (09:23)
== END 2025-09-12 10:08 | disposition home or self-care (01) ==
PROVIDERS: Emergency Provider Student in an Organized Health Care Education/Training Program; PCP Family Medicine; Visit Provider Student in an Organized Health Care Education/Training Program
DX: S16.1XXA Strain of muscle, fascia and tendon at neck level, initial encounter (principal); E11.9 Type 2 diabetes mellitus without complications; Z87.891 Personal history of nicotine dependence; E78.5 Hyperlipidemia, unspecified; I10 Essential (primary) hypertension; X58.XXXA Exposure to other specified factors, initial encounter
CPT/HCPCS: 96372; 99282